=== PATIENT | female | born 1945 | race Caucasian/White ===

== ENCOUNTER 2020-07-20 16:43 | Observation (INO) ==
[2020-07-20 17:42] LABS: Basophils # 0.1 K/mcL (0.0-0.2); Basophils % 0.3 %; Eosinophils % 0.1 %; Hematocrit 36.6 % (35.3-44.9); Immature Granulocytes % 2.4 % (0-4); Lymphocytes % 5.5 %; Mean Corpuscular HGB Conc 32.8 g/dL (31.6-35.5); Mean Corpuscular Hemoglobin 28.8 pg (28.0-33.3); Mean Platelet Volume 9.4 fL (9.4-12.4); Monocytes # 1.2 K/mcL (0.0-1.3); Monocytes % 6.8 %; Platelet Count 348 K/mcL (140-400); Red Blood Count 4.16 M/mcL (3.82-4.97); Red Cell Distribution Width 15.1 % (11.5-14.5); Segmented Neutrophils % 84.9 %; White Blood Count 17.7 K/mcL (4.3-11.1)
[2020-07-20 17:46] LABS: Prothrombin Time 11.6 Seconds (9.4-12.1)
[2020-07-20 17:57] LABS: Bilirubin,Urine Negative (Negative); Blood,Urine Negative (Negative); Clarity,Urine Clear (Clear); Color,Urine Yellow (Yellow); Glucose,Urine (UA) Normal (Normal); Ketones,Urine Trace mg/dL (Negative); Leukocyte Esterase,Urine Negative (Negative); Nitrite,Urine Negative (Negative); PH,Urine 5.5 pH Units (5.0-8.0); Protein,Urine Negative (Neg-Trace); Urobilinogen,Urine Normal (Normal)
[2020-07-20 17:58] LABS: BUN/Creatinine Ratio 17 (6-26); Blood Urea Nitrogen 17 mg/dL (8-23); Carbon Dioxide 30 mEq/L (23-29); Chloride 88 mEq/L (98-107); Glucose 121 mg/dL (70-105); Osmolality,Calculated 257 (280-300); Potassium 5.7 mEq/L (3.5-5.1); Sodium 122 mEq/L (136-145); eGFR For African Americans > 60 (> 60); eGFR For Non-African Americans 55 (> 60)
[2020-07-20] MEDS ORDERED: levoFLOXacin 500 MG/100 ML 500 MG/100 ML BAG IVPB ONE (19:00)
[2020-07-20] MEDS ORDERED: methylPREDNISolone 125 MG/2 ML VIAL IVP ONE (19:00)
[2020-07-20] MEDS ORDERED: *HR* HYDROcodone/Acet 7.5/325 mg TABLET PO PRN (20:10)
[2020-07-20] MEDS ORDERED: Naloxone 0.4 MG/ML INJ IVP PRN (20:10)
[2020-07-20] MEDS ORDERED: Ondansetron 4 MG/2 ML VIAL IVP PRN (20:10)
[2020-07-20] MEDS ORDERED: Levalbuterol Neb 1.25 MG/3 ML IH SCH (20:10)
[2020-07-20] MEDS ORDERED: Fluticasone Propionate Nasal 50 MCG/SPRAY BOTTLE NS PRN (20:10)
[2020-07-20] MEDS ORDERED: Levalbuterol Neb 1.25 MG/3 ML IH PRN (20:45)
[2020-07-20] MEDS: DilTIAZem CD (24hr) 120 MG CAP.ER.24H PO SCH (20:48)
[2020-07-20] MEDS ORDERED: Mirtazapine 15 MG TABLET PO SCH (21:00)
[2020-07-20] MEDS ORDERED: Tiotropium 18 MCG inhalation IH SCH (21:00)
[2020-07-20] MEDS: Ipratropium/Albuterol Neb 3 ML IH SCH ×2 (23:57→23:58)
[2020-07-21] MEDS: Ipratropium/Albuterol Neb 3 ML IH SCH (00:30)
[2020-07-21] MEDS: MethylPREDNISolone 40 MG/ML VIAL IVP SCH ×3 (01:32→12:10)
[2020-07-21 06:35] VITALS: BP 107/78
[2020-07-21] MEDS: DilTIAZem CD (24hr) 120 MG CAP.ER.24H PO SCH (07:53)
[2020-07-21] MEDS: 0.9 % Sodium Chloride 1,000 ML IVC SCH ×2 (08:01→12:11)
[2020-07-21 08:34] LABS: Basophils % 0.1 %; Eosinophils # 0.1 K/mcL (0.0-0.6); Eosinophils % 0.8 %; Hematocrit 37.5 % (35.3-44.9); Hemoglobin 12.6 g/dL (11.5-15.4); Immature Granulocytes % 1.8 % (0-4); Lymphocytes # 0.6 K/mcL (0.6-4.6); Lymphocytes % 4.3 %; Mean Corpuscular HGB Conc 33.6 g/dL (31.6-35.5); Mean Corpuscular Hemoglobin 29.2 pg (28.0-33.3); Mean Corpuscular Volume 86.8 fL (83.0-100.0); Mean Platelet Volume 9.1 fL (9.4-12.4); Monocytes # 0.1 K/mcL (0.0-1.3); Neutrophils # 12.3 K/mcL (1.6-8.9); Platelet Count 347 K/mcL (140-400); Red Blood Count 4.32 M/mcL (3.82-4.97); Red Cell Distribution Width 14.7 % (11.5-14.5); White Blood Count 13.4 K/mcL (4.3-11.1)
[2020-07-21] MEDS ORDERED: Magnesium Oxide 400 MG TABLET PO SCH (09:00)
[2020-07-21] MEDS ORDERED: NON-FORMULARY MEDICATION 1 EACH EACH (Prednisone [Prednisone] 10 MG) PO SCH (09:00)
[2020-07-21] MEDS ORDERED: Cholecalciferol (D-3) 1,000 UNIT (25MCG) TABLET PO SCH (09:00)
[2020-07-21] MEDS ORDERED: Metoprolol XL (24 HR) Succ 50 MG TAB.ER.24H PO SCH (09:00)
[2020-07-21] MEDS ORDERED: Tiotropium 18 MCG inhalation IH SCH (10:00)
[2020-07-21 10:55] LABS: BUN/Creatinine Ratio 14 (6-26); Blood Urea Nitrogen 13 mg/dL (8-23); Calcium 8.6 mg/dL (8.6-10.3); Carbon Dioxide 26 mEq/L (23-29); Chloride 88 mEq/L (98-107); Glucose 213 mg/dL (70-105); Osmolality,Calculated 260 (280-300); Potassium 5.2 mEq/L (3.5-5.1); Sodium 122 mEq/L (136-145); eGFR For African Americans > 60 (> 60); eGFR For Non-African Americans 59 (> 60)
[2020-07-25] MEDS ORDERED: NON-FORMULARY MEDICATION 1 EACH EACH (Alendronate Sodium [Fosamax] 70 MG) PO SCH (19:06)
== END 2020-07-21 16:30 | disposition short-term general hospital (02) ==
LOC: EMEROOPIK 16:43 → INPPIK 16:43
PROVIDERS: ADMIT Family Medicine; ATTEND Family Medicine